=== PATIENT | female | born 1955 | race American Indian/Alaskan Native ===

== ENCOUNTER 2021-07-22 23:10 | Emergency (ER) | payer MEDICARE, OTHER ==
[2021-07-22 23:33] VITALS: BP 166/88
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
[2021-07-23 00:55] LABS: Basophils % (Auto) 0.2 % (0.0-1.8); Eosinophils # (Auto) 0.2 K/mm3 (0.0-0.4); Eosinophils % (Auto) 3.3 % (0.0-4.3); Hematocrit 36.3 % (30.3-42.9); Hemoglobin 11.7 gm/dl (10.1-14.3); Lymphocytes # (Auto) 2.8 K/mm3 (1.2-5.4); Lymphocytes % (Auto) 39.1 % (13.4-35.0); Mean Corpuscular HGB Conc 32 % (30-34); Mean Corpuscular Volume 89 fl (79-97); Monocytes # (Auto) 0.7 K/mm3 (0.0-0.8); Monocytes % (Auto) 9.9 % (0.0-7.3); Platelet Count 240 K/mm3 (140-440); Red Blood Count 4.06 M/mm3 (3.65-5.03)
[2021-07-23 01:00] LABS: INR 0.92 (0.87-1.13)
[2021-07-23 01:01] LABS: Partial Thromboplastin Time 29.9 Sec. (24.2-36.6)
[2021-07-23 01:22] LABS: Creatine Kinase MB 2.4 ng/mL (0.0-4.0)
[2021-07-23 01:23] LABS: Alanine Aminotransferase 17 units/L (7-56); Albumin 4.1 g/dL (3.9-5); BUN/Creatinine Ratio 31; Blood Urea Nitrogen 28 mg/dL (7-17); Calcium 9.6 mg/dL (8.4-10.2); Hemolysis Index 0
[2021-07-23 01:33] LABS: Thrombin Time 16.2 Sec. (15.1-19.6)
== END 2021-07-23 04:12 | disposition left against medical advice (07) ==
LOC: ED 23:10
DX: R20.0 Anesthesia of skin (principal); I10 Essential (primary) hypertension; E11.9 Type 2 diabetes mellitus without complications; R60.9 Edema, unspecified; Z98.890 Other specified postprocedural states; Z87.891 Personal history of nicotine dependence; Z88.1 Allergy status to other antibiotic agents; Z88.2 Allergy status to sulfonamides
CPT/HCPCS: 36415; 80053; 82550; 82553; 82962; 84484; 85025; 85610; 85670; 85730; 99283